=== PATIENT | male | born 1945 | race Caucasian/White ===

== ENCOUNTER → 2017-11-06 | Outpatient (CLI) | payer OTHER ==
--- NOTE | 2017-11-06 15:24 | DIAGNOSTIC IMAGING REPORT ---
KUB CLINICAL HISTORY: Bladder stones. COMPARISON STUDY: CT of the abdomen and pelvis October 03, 2017. FINDINGS: Clustered small calculi projecting over the lower pole of the left kidney are unchanged since CT of October 03, 2017. No ureteral calculi are identified. Pelvic calcifications likely reflect phlebolith, vascular calcifications and prostatic calcifications. The small bladder calculus shown on CT of October 03, 2017 is not definitively identified on this exam. A right abdominal calcification was shown to be within the pancreas on prior CT. IMPRESSION: 1. No ureteral calculi identified. Nonvisualization of the bladder calculus shown on CT of October 03, 2017. 2. No change in left-sided nephrolithiasis. Electronically signed by: Cosmo Vallecillo M.D. 11/06/2017 3:23 PM Dictated Date/Time: 11/06/2017 3:19 PM
== END | disposition home or self-care (01) ==
LOC: C.RAD 14:45
PROVIDERS: ATTEND Urology
DX: N21.0 Calculus in bladder (principal)